=== PATIENT | female | born 1950 | race Caucasian/White ===

== ENCOUNTER → 2017-04-14 | Outpatient (CLI) | payer MEDICARE ==
[~2017-04-14] MED LIST: ASPIRIN 32325 MG/TAB PO; CLARITIN; LISINOPRIL10 MG PO; [UNRECOGNIZED DRUG - OTHER] PO
== END ==
LOC: COL.RAD 09:20
DX: K21.9 Gastro-esophageal reflux disease without esophagitis (principal); K44.9 Diaphragmatic hernia without obstruction or gangrene

== ENCOUNTER → 2018-05-15 | Outpatient (CLI) | payer MEDICARE | LOC: MC.RAD 13:19 | DX: Z12.31 Encounter for screening mammogram for malignant neoplasm of breast (principal) ==

== ENCOUNTER 2024-04-03 23:33 | Observation (INO) | payer MEDICARE ==
[~2024-04-03] VITALS: Ht 175.3 cm; Wt 77.3 kg
[2024-04-04] VITALS (11 sets, daily range): BP systolic 113–136; BP diastolic 65–88; PULSE 65–83; TEMP 97.6–97.8
[2024-04-04] MEDS ORDERED: NS 500 ML IV ONE (00:30)
[2024-04-04] MEDS ORDERED: Pantoprazole 80 MG in NS 100 ML IV ONE (00:30)
[2024-04-04] MEDS ORDERED: Ondansetron 4 MG/2 ML VIAL IV ONE (00:30)
[2024-04-04 00:59] LABS: BASO % 0.4 % (0.0-2.0); EOS % 0.3 % (0.0-4.0); GRAN # 9.5 K/mm3 (1.4-6.5); GRAN % 87.2 % (42.2-75.2); HEMATOCRIT 42.1 % (37.0-47.0); HEMOGLOBIN 14.2 g/dl (12.5-16.0); LYMPH # 0.8 K/mm3 (1.2-3.4); LYMPH % 7.1 % (20.0-51.0); MEAN CELL VOLUME 92 fl (80.0-100.0); MEAN CORPUSCULAR HEMOGLOBIN 31 pg (27-31); MEAN CORPUSCULAR HGB CONC 34 g/dl (33.0-37.0); MEAN PLATELET VOLUME 9.2 fl (7.4-10.4); MONO # 0.5 K/mm3 (0.1-0.6); MONO % 4.8 % (1.7-9.3); PLATELET COUNT 330 K/mm3 (130-400); RED BLOOD COUNT 4.56 M/mm3 (4.10-5.30); REDCELL DISTRIBUTION WIDTH-CV 13.5 % (11.5-14.5)
[2024-04-04 01:14] LABS: INR 1.2 (0.8-3.0); PROTHROMBIN TIME 12.9 SECONDS (9.7-12.8)
[2024-04-04 01:17] LABS: BILIRUBIN,TOTAL 0.3 mg/dL (0.2-1.2); CALCIUM 9.5 mg/dL (8.4-10.2); CREATININE, serum 1.44 mg/dL (0.57-1.11); POTASSIUM 3.7 mEq/L (3.5-4.5); TOTAL PROTEIN 6.8 g/dl (6.2-8.1)
[2024-04-04 01:29] LABS: PARTIAL THROMBOPLASTIN TIME 34.3 SECONDS (26.0-37.0)
[2024-04-04 01:39] LABS: URINE APPEARANCE CLOUDY (CLEAR/HAZY); URINE BLOOD NEGATIVE (NEGATIVE); URINE COLOR YELLOW (YELLOW); URINE GLUCOSE NEGATIVE (NEGATIVE); URINE KETONE 1+ (NEGATIVE); URINE NITRATE NEGATIVE (NEGATIVE); URINE PROTEIN(semi-quant) 1+ (NEGATIVE); URINE UROBILINOGEN 0.2 E.U/dL (0.2-1.0)
[2024-04-04] MEDS ORDERED: Iohexol 300 - 100 ML VIAL IV ONE (01:49)
[2024-04-04 01:55] LABS: COLLECTION METHOD CLEAN CATCH
[2024-04-04 01:56] LABS: MUCOUS PRESENT (NOT PRESENT); SQUAMOUS EPITHELIAL 0-2 /hpf (0-10); URINE BACTERIA OCCASIONAL /hpf (NONE SEEN); URINE CALCIUM OXALATE CRYSTAL PRESENT (NOT PRESENT); URINE RBC 0-2 /hpf (0-2)
[2024-04-04] MEDS ORDERED: NORVASC 5MG5 MG/TAB PO (03:21)
[2024-04-04] MEDS ORDERED: LIPITOR 10MG10 MG PO (03:21)
[2024-04-04] MEDS ORDERED: CELEXA 20MG20 MG/TAB PO (03:22)
[2024-04-04] MEDS ORDERED: TIROSINT75 MC1 PO (03:22)
[2024-04-04] MEDS ORDERED: TOPROL XL 25MG25 MG PO (03:22)
[2024-04-04] MEDS ORDERED: K-TAB20 PO (03:23)
[2024-04-04] MEDS ORDERED: NS 1,000 ML IV SCH (03:30)
[2024-04-04] MEDS ORDERED: ELIQUIS 5MG PO (03:52)
[2024-04-04] MEDS ORDERED: cefTRIAXone 1 G in Water For Injection,Sterile 10 ML IV SCH (04:00)
[2024-04-04 06:48] LABS: BASO % 0.4 % (0.0-2.0); EOS % 0.4 % (0.0-4.0); GRAN # 6.1 K/mm3 (1.4-6.5); GRAN % 75.7 % (42.2-75.2); HEMOGLOBIN 13.3 g/dl (12.5-16.0); LYMPH # 1.3 K/mm3 (1.2-3.4); LYMPH % 15.9 % (20.0-51.0); MEAN CELL VOLUME 92 fl (80.0-100.0); MEAN CORPUSCULAR HEMOGLOBIN 31 pg (27-31); MEAN CORPUSCULAR HGB CONC 34 g/dl (33.0-37.0); MEAN PLATELET VOLUME 9.1 fl (7.4-10.4); MONO # 0.6 K/mm3 (0.1-0.6); MONO % 7.5 % (1.7-9.3); PLATELET COUNT 299 K/mm3 (130-400); RED BLOOD COUNT 4.24 M/mm3 (4.10-5.30); REDCELL DISTRIBUTION WIDTH-CV 13.5 % (11.5-14.5)
[2024-04-04 07:14] LABS: CALCIUM 8.4 mg/dL (8.4-10.2); CREATININE, serum 1.18 mg/dL (0.57-1.11); POTASSIUM 3.8 mEq/L (3.5-4.5)
[2024-04-04] MEDS ORDERED: LR 1,000 ML IV SCH ×2 (08:00→13:45)
[2024-04-04] MEDS ORDERED: COMPLETE MULTI1 TAB PO (08:15)
[2024-04-04] MEDS ORDERED: MASON NATURAL2000 IU PO (08:17)
[2024-04-04] MEDS ORDERED: LORazepam 2 MG/ML 1 ML VIAL IV ONE (08:30)
[2024-04-04] MEDS ORDERED: Citalopram 20 MG TAB PO SCH (09:00)
[2024-04-04] MEDS ORDERED: Pantoprazole 40 MG in NS 10 ML IV SCH (09:00)
[2024-04-04] MEDS ORDERED: Ondansetron 4 MG/2 ML VIAL IV PRN (13:00)
[2024-04-04] MEDS ORDERED: Lidocaine PF 2% (20 MG/ML) 5 ML VIAL ONE (13:34)
--- NOTE | 2024-04-04 14:30 | NUR ---
PATIENT ADMITED INTO ROOM 348 FROM ENDO POST-OP EGD WHERE A LARGE HIATAL HERNIA WAS FOUND, BX TAKEN. SEE SURGICAL CONSULT, NPO FOR CONSULT. IV FLUIDS INFUSING INTO LEFT WRIST IV. NO C/O N/V. VSS. 02 @ 2L PER NC WITH SATS IN MID 90'S. HEAD TO TOE ASSESSMENT COMPLETE. ORIENTED TO ROOM. CALL LIGHT IN REACH.
--- NOTE | 2024-04-04 15:16 | NUR ---
BRANT notifed by RN that patient was brought in from [place] via EMS and is wanting to return home due to her being sick at home. Patient awaiting surgeon to meet with her and discuss plan of care. Patient voiced to RN that she doesn't have a ride home. BRANT met with patient to complete initial assessment for discharge planning. Patient reported that she lives at home in [place] with her Juan Ramon ([phone]). Patient reports to see Dr. Florez as her PCP and uses [facility] pharmacy without difficulty. Patient denies using any DME. and reports to be independent. Patient denies having any DME. Patient shared that she just picked up up from [facility] yesterday after him having heart surgery. She reports that he is alert and oriented and able to care for himself. She reports that they have food in the home in the event that she has to remain in the hospital tonight. She states he is not well enough to drive after his surgery. They have no family or friends that are able to pick her up for return to home. She states their neighbor across the street can help her if he needed it. SW discussed option of Uber transportation to home which patient stated she is agreeable to. Discussed decision will be made by surgeon if patient remains hospitalized or can return home tonight. Patient agreeable. RN notified that if patient is able to return home tonight that they can call an Uber for her. Discharge plan: Home
--- NOTE | 2024-04-04 18:55 | NUR ---
PATIENT RESTING IN BED WITH TV OFF WITH NO FAMILY PRESENT WITH NO ACUTE DISTRESS NOTED. PATIENT ON 1 LITER OF OXYGEN VIA NC. LR INFUSING INTO LEFT WRIST WITH NO COMPLICATIONS NOTED. BEDSIDE SHIFT REPORT COMPLETED WITH FRANCOISE AT THIS TIME. PATIENT DENIES ANY NEEDS. BED IN LOW POSITON WITH WHEELS LOCKED WITH RAILS UP X2 AND CALL LIGHT WITHIN REACH.
--- NOTE | 2024-04-04 19:44 | NUR ---
PATIENT RESTING IN BED WITH TV OFF WITH NO FAMILY PRESENT WITH NO ACUTE DISTRESS NOTED. PATIENT ON 1 LITER OF OXYGEN VIA NC. LR INFUSING INTO LEFT WRIST WITH NO COMPLICATIONS NOTED. VITAL SIGNS AND ASSESSMENT COMPLETED AT THIS TIME. PATIENT TOLERATED WELL. PATIENT REQUESTED TO USE BATHROOM. PATIENT ASSISTED TO BATHROOM WITH STAND BY ASSIST. GAIT STEADY. PATIENT VOIDED AND DID OWN PER CARE. PATIENT WASHED HANDS AT SINK AND AMBULATED BACK TO BED. PATIENT DENIES ANY OTHER NEEDS. BED IN LOW POSITION WITH WHEELS LOCKED WITH RAILS UP X3 AND CALL LIGHT WITHIN REACH.
[2024-04-04] MEDS ORDERED: Atorvastatin 10 MG TAB PO SCH (21:00)
--- NOTE | 2024-04-04 21:22 | NUR ---
PATIENT RESTING IN BED WITH TV ON WITH NO FAMILY PRESENT WITH NO ACUTE DISTRESS NOTED. PATIENT ON 1 LITER OF OXYGEN VIA NC. LR TUBING CHANED FROM STRAIGHT TUBING TO IV PUMP TUBING. LR INFUSING INTO LEFT WRIST WITH NO COMPLICATIONS NOTED. MEDICATION ADMINISTRATION COMPLETED AT THIS TIME. PATIENT TOLERATED WELL. ALL NEEDS MET. BED IN LOW POSITION WITH WHEELS LOCKED WITH RAILS UP X3 AND CALL LIGHT WITHIN REACH.
[2024-04-05] VITALS (7 sets, daily range): BP systolic 118–144; BP diastolic 78–85; PULSE 75–89; TEMP 98–98.3
--- NOTE | 2024-04-05 08:00 | NUR ---
PATIENT AAOX4, SITTING UP RIGHT ON THE EDGE OF BED, HEAD TO TOE ASSESSMENT COMPLETE, AM MEDS GIVEN, PATIENT VERBALIZED NEED FOR RIDE HOME AT DISCHARGE, DENIES PAIN AT THIS TIME. BED AT LOWEST POSITION, CALL LIGHT WITHIN REACH.
[2024-04-05] MEDS ORDERED: PROTONIX 40MG T40 MG PO (08:38)
[2024-04-05] MEDS ORDERED: Apixaban 5 MG TABLET PO SCH (09:00)
--- NOTE | 2024-04-05 14:10 | NUR ---
PATIENT DISCHARGING HOME. GAVE DISCHARGE INSTRUCTIONS, E-SCRIPT SENT, DISCUSSED F/U APT AND PENDING OUTPATIENT SURGERY. ANSWERED QUESTIONS/CONCERNS. RN DC'D IV SITE AND COVERED WITH GAUZE & COBAN. PATIENT IS DRESSED, PACKED AND ESCORTED VIA WC TO ER WHERE SYRUP SHED SUPERVISOR CALLED AN UBER FOR HER. PATIENT DISCHARGED.
--- NOTE | 2024-04-05 14:53 | NUR ---
sawmill production worker ordered pt an UBER. RN notified of necessary information. Discharge Plan: home
--- NOTE | 2024-04-06 11:45 | NUR ---
D: Virtual Recruiter stopped by room on rounds. A: Pt was resting and content with no needs. P: Virtual Recruiter informed pt that if she needed anything from the aviation mechanic area to let her nurse know. Virtual Recruiter will follow up as needed.
== END 2024-04-05 14:10 | disposition home or self-care (01) ==
LOC: COL.ER 23:33 → SURG 04-04 03:31
PROVIDERS: Emergency Medicine; Nurse Practitioner Family; ADMIT Internal Medicine
DX: K44.9 Diaphragmatic hernia without obstruction or gangrene (principal); K31.89 Other diseases of stomach and duodenum; K92.0 Hematemesis; J96.01 Acute respiratory failure with hypoxia; R82.71 Bacteriuria; E78.5 Hyperlipidemia, unspecified; I12.9 Hypertensive chronic kidney disease with stage 1 through stage 4 chronic kidney disease, or unspecified chronic kidney disease; N18.32 Chronic kidney disease, stage 3b; E87.0 Hyperosmolality and hypernatremia; E87.20 Acidosis, unspecified; E03.9 Hypothyroidism, unspecified; F41.9 Anxiety disorder, unspecified; F32.A Depression, unspecified; Z79.890 Hormone replacement therapy; Z79.01 Long term (current) use of anticoagulants; Z86.718 Personal history of other venous thrombosis and embolism; Z85.828 Personal history of other malignant neoplasm of skin; Z85.820 Personal history of malignant melanoma of skin; Z79.899 Other long term (current) drug therapy; Z90.710 Acquired absence of both cervix and uterus
CPT/HCPCS: G0378; J0696; J2060; J2405; J2470; J2704; J7030; J7040; J7120; Q9967